=== PATIENT | male | born 1955 | race Caucasian/White ===

== ENCOUNTER 2017-08-09 14:49 | Emergency (ER) | payer OTHER ==
[2017-08-09 15:01] VITALS: TEMP 97.8
[2017-08-09 15:34] LABS: BASOPHILS % (AUTO) 3 % (0-3); EOSINOPHILS % (AUTO) 1 % (0-9); HEMATOCRIT 35 % (39-53); HEMOGLOBIN 12.3 gm/dl (13.5-17.7); LYMPHOCYTES % (AUTO) 16.7 % (10-50); MEAN CORPUSCULAR HEMOGLOBIN 32.6 pg (27.0-32.0); MEAN CORPUSCULAR HGB CONC 34.9 gm/dl (32.0-36.0); MEAN CORPUSCULAR VOLUME 93 fL (80-100); MONOCYTES % (AUTO) 7.2 % (0-12); NEUTROPHILS % (AUTO) 72.6 % (37-80)
[2017-08-09 15:44] LABS: CALCIUM 8.1 mg/dl (8.5-10.1); CREATININE 1.07 mg/dl (0.80-1.30); POTASSIUM 3.5 mMol/L (3.5-5.1)
[2017-08-09 16:12] VITALS: BP 114/66; PULSE 72; RESP 18; O2SAT 97
== END 2017-08-09 16:04 | disposition home or self-care (01) | DRG 641 ==
LOC: ED 14:49
DX: E86.0 Dehydration (principal); R53.83 Other fatigue
CPT/HCPCS: 36415; 80048; 82550; 85025; 93005; 99283